=== PATIENT | female | born 1980 | race Caucasian/White ===

== ENCOUNTER 2016-11-05 10:15 | Emergency (ER) | payer MEDICAID ==
[~2016-11-05] VITALS: Ht 152.4 cm; Wt 55.0 kg
[~2016-11-05 10:15] MED LIST: PREN-29 PO
[2016-11-05 10:19] VITALS: Ht 152.4 cm; Wt 55.0 kg
[2016-11-05] MEDS ORDERED: DIPHENHYDRAMINE 50 MG INJ IV ONE (11:00)
[2016-11-05] MEDS ORDERED: METHYLPREDNISOLONE 125 MG INJ IV ONE (11:00)
[2016-11-05] MEDS ORDERED: FAMOTIDINE 20 MG INJ IV ONE (11:00)
[2016-11-05] MEDS ORDERED: SOD CHLORIDE 0.9% 1,000 ML IV ONE (11:00)
[2016-11-05] MEDS ORDERED: BEN25 PO (11:32)
[2016-11-05] MEDS ORDERED: PRED20TA PO (11:32)
--- NOTE | 2016-11-05 11:49 | ERD ---
ER Documentation Chief Complaint Date/Time DATE: 11/05/16 TIME: 11:45 Chief Complaint RASH SINCE SATURDAY HPI This is a 36-year-old female presents to the ER with a rash that started on Saturday. Rash is located all over her body is very itchy. Patient does not recall coming in contact with any new substances, medications, clothing, detergents. This morning patient woke up and her lips were swollen. Patient denies any difficulty in breathing, shortness of breath, wheezing. Patient denies any fevers or chills. ROS 12 point review of systems was done, all negative except per HPI.. Medications Home Meds Active Scripts Diphenhydramine Hcl* (Benadryl*) 25 Mg Cap, 25 MG PO Q6, #30 CAP Prov:GAGE WOODS 11/05/16 Prednisone* (Prednisone*) 20 Mg Tab, 40 MG PO DAILY for 4 Days, TAB Prov:CHLOE WOODSNA C 11/05/16 Allergies Allergies: Coded Allergies: No Known Drug Allergy (Verified Allergy, Unknown, 11/05/16) PMhx/Soc Medical and Surgical Hx: pt denies Medical Hx, pt denies Surgical Hx History of Surgery: No Anesthesia Reaction: No Hx Neurological Disorder: No Hx Respiratory Disorders: No Hx Cardiac Disorders: No Hx Psychiatric Problems: No Hx Miscellaneous Medical Probl: No Hx Alcohol Use: No Hx Substance Use: No Hx Tobacco Use: No Smoking Status: Never smoker Physical Exam Vitals Vital Signs Date Time Temp Pulse Resp B/P Pulse Ox O2 Delivery O2 Flow Rate FiO2 11/05/16 10:19 98.0 79 20 130/78 99 Physical Exam GENERAL: The patient is well developed and appropriate for usual state of health , in no apparent distress. HEENT: Atraumatic. Conjunctivae are pink. Pupils equal, round, and reactive to light. Extraocular muscles are grossly intact. Patient has mild swelling, there is no eye swelling no tongue swelling. There is no uvular deviation or kissing tonsils. CHEST: Clear to auscultation bilaterally. There are no rales, wheezes or rhonchi. HEART: Regular rate and rhythm. No murmurs, clicks, rubs or gallops. NEURO: Alert and oriented. SKIN: Hive like rash all over the body. Results 24 hrs Current Medications Medications (Trade) Dose Ordered Sig/Irving Route PRN Reason Start Time Stop Time Status Last Admin Dose Admin Sodium Chloride (NS) 1,000 ml @ 1,000 mls/hr Q1H ONCE IV 11/05/16 11:00 11/05/16 11:59 11/05/16 11:05 Methylprednisolone Sodium Succinate (Solu-Medrol) 80 mg ONCE ONCE IV 11/05/16 11:00 11/05/16 11:01 DC 11/05/16 11:04 Diphenhydramine HCl (Benadryl) 50 mg ONCE ONCE IV 11/05/16 11:00 11/05/16 11:01 DC 11/05/16 11:04 Famotidine (Pepcid Iv) 20 mg ONCE ONCE IV 11/05/16 11:00 11/05/16 11:01 DC 11/05/16 11:05 Procedures/MDM Differential Diagnosis: dermatitis, allergic urticaria, viral exanthem, insect bite, fungal infectio ,viral exanthem, hand foot mouth disease, , impetigo, cellulitis, abscess, tri reynold syndrome, meningocemia, necrotizing fasciitis, myositis. This is a 36-year-old female presents to the ER with a rash all over her body. Patient does appear to be having an allergic reaction. Patient was given IV Solu-Medrol, Benadryl, famotidine, fluids here in the ER. Patient felt significantly better after treatment. This patient for anaphylactic reaction is low, patient is not hypoxic in any respiratory distress. She is afebrile and well-appearing, I doubt infectious process. She will be sent home with prednisone and Benadryl. Patient is to follow-up with her primary care doctor within 1-2 days return to ER sooner if symptoms worsen. My medical decision making was shared with patient she understands and agrees with plan. Departure Diagnosis: Primary Impression: Allergic reaction Condition: Stable Patient Instructions: First Aid: Allergic Reactions Additional Instructions: Call your primary care doctor TOMORROW for an appointment during the next 1-2 days.See the doctor sooner or return here if your condition worsens before your appointment time. GAGE WOODS Nov 05, 2016 11:49
[2016-11-05 12:20] VITALS: BP 108/64; PULSE 88; RESP 18; TEMP 98.7
[2016-11-06] MEDS ORDERED: BEN50 PO (11:02)
[2016-11-06] MEDS ORDERED: FAMO-96 PO (11:02)
== END 2016-11-05 12:30 | disposition home or self-care (01) ==
LOC: FTE 10:15
DX: R21 Rash and other nonspecific skin eruption (principal)
CPT/HCPCS: J1200; J2930; J7030; Z7610; 96361; 96374; 96375

== ENCOUNTER 2016-11-06 08:22 | Emergency (ER) | payer MEDICAID ==
[~2016-11-06] VITALS: Ht 152.4 cm; Wt 60.0 kg
[~2016-11-06 08:22] MED LIST changes: +BEN25 PO; +PRED20TA PO; -PREN-29 PO
[2016-11-06 08:26] VITALS: Ht 152.4 cm; Wt 60.0 kg
[2016-11-06] MEDS ORDERED: DIPHENHYDRAMINE 50 MG INJ IV ONE (09:00)
[2016-11-06] MEDS ORDERED: DEXAMETHASONE 10 MG/ML 1 ML INJ IV ONE (09:00)
[2016-11-06] MEDS ORDERED: FAMOTIDINE 20 MG INJ IV ONE (09:00)
[2016-11-06] MEDS ORDERED: SOD CHLORIDE 0.9% 1,000 ML IV ONE (09:00)
--- NOTE | 2016-11-06 09:13 | ERD ---
ER Documentation Chief Complaint Date/Time DATE: 11/06/16 TIME: 09:11 Chief Complaint GENERALIZED BODY HIVES,SORE THROAT,ITCHING, POSSIBLE ALLERGIC REACTION HPI 36-year-old female who was seen yesterday for an allergic reaction comes into the ER with generalized hives that are persistent, itchy throat, and swelling to her face and arms. The patient states that it started Saturday which was 3 days ago, she states that she ate beans and turkey and rice, no new foods, medications, lotions, creams, detergents or fragrances. She was treated yesterday and has been taking Benadryl as well as prednisone at home and despite the treatment she states that she still feels very itchy, and the rash has not improved. She denies any trouble swallowing, voice changes. ROS All systems reviewed and are negative except as per history of present illness. Medications Home Meds Active Scripts Diphenhydramine Hcl* (Benadryl*) 50 Mg Cap, 50 MG PO Q6 Y for ITCHING, #30 CAP Prov:CAIT HERZOG PA-C 11/06/16 Famotidine* (Pepcid*) 20 Mg Tablet, 20 MG PO BID for 4 Days, TAB Prov:CAIT HERZOG PA-C 11/06/16 Diphenhydramine Hcl* (Benadryl*) 25 Mg Cap, 25 MG PO Q6, #30 CAP Prov:GAGE WOODS 11/05/16 Prednisone* (Prednisone*) 20 Mg Tab, 40 MG PO DAILY for 4 Days, TAB Prov:GAGE WOODS 11/05/16 Allergies Allergies: Coded Allergies: No Known Drug Allergy (Verified Allergy, Unknown, 11/05/16) PMhx/Soc History of Surgery: No Anesthesia Reaction: No Hx Neurological Disorder: No Hx Respiratory Disorders: No Hx Cardiac Disorders: No Hx Psychiatric Problems: No Hx Miscellaneous Medical Probl: No Hx Alcohol Use: No Hx Substance Use: No Hx Tobacco Use: No Smoking Status: Never smoker Physical Exam Vitals Vital Signs Date Time Temp Pulse Resp B/P Pulse Ox O2 Delivery O2 Flow Rate FiO2 11/06/16 08:26 98.4 88 18 123/57 98 Physical Exam General: Well-developed, well-nourished. The patient appears in no acute distress. HEENT: Head is normocephalic, atraumatic. No scleral icterus. Pupils are equal , round, and reactive. Oral mucous membranes are moist. No pharyngeal erythema. No angioedema. Neck: Supple. Nontender. Lungs: Clear to auscultation. Normal air movement. Heart: Regular rate and rhythm. S1 and S2 are normal. No murmurs, gallops, or rubs. Abdomen: Soft, nontender, nondistended. Bowel sounds are normoactive. Extremities: No clubbing or cyanosis. Normal pulses. Moving extremities x 4. No weakness. Neurologic: Alert and oriented 3. No focal deficits. Skin: Diffuse hives that are blanchable on the face trunk, and extremities. Results 24 hrs Current Medications Medications (Trade) Dose Ordered Sig/Irving Route PRN Reason Start Time Stop Time Status Last Admin Dose Admin Dexamethasone (Decadron) 10 mg ONCE ONCE IV 11/06/16 09:00 11/06/16 09:01 DC 11/06/16 08:58 Diphenhydramine HCl (Benadryl) 50 mg ONCE ONCE IV 11/06/16 09:00 11/06/16 09:01 DC 11/06/16 08:58 Famotidine 20 mg 20 mg ONCE ONCE IV 11/06/16 09:00 11/06/16 09:01 DC 11/06/16 08:58 Sodium Chloride (NS) 1,000 ml @ 1,000 mls/hr Q1H ONCE IV 11/06/16 09:00 11/06/16 09:59 DC 11/06/16 09:02 Procedures/MDM ER course: EMR is reviewed from previous visit. She had an IV line established, she was given Decadron 10 mg IV, Benadryl 50 mg and Pepcid 20 mg IV. She was also given normal saline 1 L. She was observed in the emergency department for approximately 2 hours, she states that she is feeling much better and the rash is reassessed and with much fainter than when she initially presented. MDM: 36-year-old female presents with allergic reaction. She was given Decadron as well as Benadryl and Pepcid and at this time her rash is improving and she states that she is feeling much better at this time. I do not believe the patient requires further monitoring at this time as she has been stable, nor does she require epinephrine. She will be asked to continue the Pepcid, and will change her Benadryl to 50 mg and add Pepcid as well. She has also been advised to avoid all seafood, shellfish, nuts, berries, and avoid hot showers, and hot beverages. The case was reviewed and discussed with Dr. Stein who agrees with the plan of care including labs, treatment, and advanced imaging as appropriate. Departure Diagnosis: Primary Impression: Allergic reaction Condition: CAIT Cancino PA-C Nov 06, 2016 09:13
[2016-11-06] MEDS ORDERED: FAMO-18 PO (11:02)
[2016-11-06] MEDS ORDERED: BEN50 PO (11:02)
== END 2016-11-06 11:40 | disposition home or self-care (01) ==
LOC: FTE 08:22
DX: L50.9 Urticaria, unspecified (principal); T78.1XXA Other adverse food reactions, not elsewhere classified, initial encounter
CPT/HCPCS: 96374; 96375; J1100; J1200; J7030; Z7502; Z7610

== ENCOUNTER 2018-10-19 11:53 | Emergency (ER) | payer MEDICAID ==
[~2018-10-19] VITALS: Ht 165.1 cm; Wt 51.1 kg
[~2018-10-19 11:53] MED LIST changes: +BEN50 PO; +FAMO-96 PO
[2018-10-19 11:57] VITALS: RESP 20; Ht 165.1 cm; Wt 51.1 kg
[2018-10-19] MEDS ORDERED: LIDOCAINE 1% (MPF) 5 ML VIAL INJ ONE (13:30)
[2018-10-19] MEDS ORDERED: IBUPROFEN 200 MG TAB PO ONE (13:30)
[2018-10-19] MEDS ORDERED: CEFTRIAXONE 1 GM INJ IM ONE (13:30)
[2018-10-19] MEDS ORDERED: CEPH-443 PO (13:45)
[2018-10-19] MEDS ORDERED: IBUP-1561 PO (13:45)
--- NOTE | 2018-10-19 13:50 | ERD ---
ER Documentation Chief Complaint Chief Complaint Complains of back pain x 3 days HPI 38-year-old female presents with complaint of right flank pain, dysuria, urgency for the past 3 days. Denies any treatments. Denies any vaginal discharge, Hematuria, fevers, nausea, vomiting, diarrhea. Denies abdominal pain. Denies allergies. ROS All systems reviewed and are negative except as per history of present illness. Medications Home Meds Active Scripts Ibuprofen* (Motrin*) 400 Mg Tab, 400 MG PO Q6 for pain, #30 TAB Prov:PARAM CENTENO 10/19/18 Cephalexin* (Keflex*) 500 Mg Capsule, 500 MG PO BID for 14 Days, CAP Prov:PARAM CENTENO 10/19/18 Diphenhydramine Hcl* (Benadryl*) 50 Mg Cap, 50 MG PO Q6 PRN for ITCHING, #30 CAP Prov:CAIT HERZOG PA-C 11/06/16 Famotidine* (Pepcid*) 20 Mg Tablet, 20 MG PO BID for 4 Days, TAB Prov:CAIT HERZOG PA-C 11/06/16 Diphenhydramine Hcl* (Benadryl*) 25 Mg Cap, 25 MG PO Q6, #30 CAP Prov:GAGE WOODS 11/05/16 Prednisone* (Prednisone*) 20 Mg Tab, 40 MG PO DAILY for 4 Days, TAB Prov:GAGE WOODS 11/05/16 Allergies Allergies: Coded Allergies: No Known Drug Allergy (Verified Allergy, Unknown, 11/05/16) PMhx/Soc Medical and Surgical Hx: pt denies Medical Hx, pt denies Surgical Hx History of Surgery: No Anesthesia Reaction: No Hx Neurological Disorder: No Hx Respiratory Disorders: No Hx Cardiac Disorders: No Hx Psychiatric Problems: No Hx Miscellaneous Medical Probl: No Hx Alcohol Use: No Hx Substance Use: No Hx Tobacco Use: No Smoking Status: Never smoker FmHx Family History: No diabetes, No coronary disease, No other Physical Exam Vitals Vital Signs Date Temp Pulse Resp B/P (MAP) Pulse Ox O2 O2 Flow FiO2 Time Delivery Rate 10/19/18 99.4 81 20 110/61 99 11:57 (77) Physical Exam Const: No acute distress Head: Atraumatic Eyes: Normal Conjunctiva ENT: Normal External Ears, Nose and Mouth. Neck: Full range of motion. No meningismus. Resp: Clear to auscultation bilaterally Cardio: Regular rate and rhythm, no murmurs Abd: Mild suprapubic tenderness without guarding. Otherwise soft, non tender, non distended. Normal bowel sounds. Negative McBurney's. Skin: No petechiae or rashes Back: Bilateral CVA tenderness. Ext: No cyanosis, or edema Neur: Awake and alert Psych: Normal Mood and Affect Results 24 hrs Laboratory Tests Test 10/19/18 13:45 10/19/18 13:51 Urine Color STRAW Urine Clarity CLEAR Urine pH 7.0 Urine Specific [place] 1.005 Urine Ketones NEGATIVE mg/dL Urine Nitrite NEGATIVE mg/dL Urine Bilirubin NEGATIVE mg/dL Urine Urobilinogen NEGATIVE mg/dL Urine Leukocyte Esterase TRACE Sonya/ul Urine Microscopic RBC 1 /HPF Urine Microscopic WBC 9 /HPF Urine Hemoglobin NEGATIVE mg/dL Urine Glucose NEGATIVE mg/dL Urine Total Protein NEGATIVE mg/dl POC Beta HCG, Qualitative NEGATIVE Current Medications Medications Dose Sig/Irving Start Time Status Last (Trade) Ordered Route PRN Stop Time Admin Dose Reason Admin Ceftriaxone 1 gm ONCE ONCE 10/19/18 DC 10/19/18 Sodium IM 13:30 13:48 (Rocephin) 10/19/18 13:31 Lidocaine 5 ml ONCE ONCE 10/19/18 DC 10/19/18 (Xylocaine INJ 13:30 13:48 1% (Mpf)) 10/19/18 13:31 Ibuprofen 400 mg ONCE ONCE 10/19/18 DC 10/19/18 (Motrin) PO 13:30 13:48 10/19/18 13:31 Procedures/MDM UA showed leukocytes. Wet mount was negative. Patient's presentation is consistent with pyelonephritis. Patient was given IM ceftriaxone in the ER and discharged with Keflex. I have low suspicion for appendicitis, renal colic, lumbar fracture, PID, AAA, or any other emergent condition. Patient discharged with strict ER precautions. Patient advised to follow up with PMD. All questions answered at discharge. Departure Diagnosis: Primary Impression: Pyelonephritis Condition: Stable Patient Instructions: Pyelonephritis, Female (Adult) Referrals: COMMUNITY CLINICS YOU HAVE RECEIVED A MEDICAL SCREENING EXAM AND THE RESULTS INDICATE THAT YOU DO NOT HAVE A CONDITION THAT REQUIRES URGENT TREATMENT IN THE EMERGENCY DEPARTMENT. FURTHER EVALUATION AND TREATMENT OF YOUR CONDITION CAN WAIT UNTIL YOU ARE SEEN IN YOUR DOCTORS OFFICE WITHIN THE NEXT 1-2 DAYS. IT IS YOUR RESPONSIBILITY TO MAKE AN APPOINTMENT FOR FOLOW-UP CARE. IF YOU HAVE A PRIMARY DOCTOR --you should call your primary doctor and schedule an appointment IF YOU DO NOT HAVE A PRIMARY DOCTOR YOU CAN CALL OUR PHYSICIAN REFERRAL HOTLINE AT IF YOU CAN NOT AFFORD TO SEE A PHYSICIAN YOU CAN CHOSE FROM THE FOLLOWING [facility] CL[facility]ICS [facility] [address] [facility] [address] [facility] [address] [facility] [facility] [address] [facility] [address] [facility] [address] [facility]. [facility]. [address] Additional Instructions: FOLLOW UP WITH YOUR PRIMARY CARE PHYSICIAN TOMORROW.Return to this facility if you are not improving as expected. PARAM CENTENO Oct 19, 2018 13:50
[2018-10-19 14:45] VITALS: BP 107/61; PULSE 73
== END 2018-10-19 14:46 | disposition home or self-care (01) ==
LOC: FTE 11:53
DX: N12 Tubulo-interstitial nephritis, not specified as acute or chronic (principal)
CPT/HCPCS: 81001; 81025; 87086; 87210; J0696; Z7610; 96372

== ENCOUNTER 2018-12-15 16:05 | Emergency (ER) | payer MEDICAID ==
[~2018-12-15] VITALS: Ht 149.9 cm; Wt 51.1 kg
[~2018-12-15 16:05] MED LIST changes: +CEPH-443 PO; +IBUP-1561 PO
[2018-12-15 16:12] VITALS: Ht 149.9 cm; Wt 51.1 kg
--- NOTE | 2018-12-15 18:49 | ERD ---
ER Documentation Chief Complaint Chief Complaint painful, frequent urination x2 days HPI 38-year-old female presents with sharp, painful, frequent urination x2 days. States she has a history of frequent urinary tract infections this feels very similar to one. She denies any blood in her urine, nausea, or vomiting. She reports abdominal pain localized to the epigastric region that does not radiate anywhere. She denies trying anything to relieve her symptoms. She denies any other medical history. ROS All systems reviewed and are negative except as per history of present illness. Medications Home Meds Active Scripts Cephalexin* (Keflex*) 500 Mg Capsule, 500 MG PO BID for 7 Days, #14 CAP Prov:FAIZAN SUAZO PA-C 12/15/18 Ibuprofen* (Motrin*) 400 Mg Tab, 400 MG PO Q6 for pain, #30 TAB Prov:PARAM CENTENO 10/19/18 Cephalexin* (Keflex*) 500 Mg Capsule, 500 MG PO BID for 14 Days, CAP Prov:PARAM CENTENO 10/19/18 Diphenhydramine Hcl* (Benadryl*) 50 Mg Cap, 50 MG PO Q6 PRN for ITCHING, #30 CAP Prov:CAIT HERZOG PA-C 11/06/16 Famotidine* (Pepcid*) 20 Mg Tablet, 20 MG PO BID for 4 Days, TAB Prov:CAIT HERZOG PA-C 11/06/16 Diphenhydramine Hcl* (Benadryl*) 25 Mg Cap, 25 MG PO Q6, #30 CAP Prov:GAGE WOODS 11/05/16 Prednisone* (Prednisone*) 20 Mg Tab, 40 MG PO DAILY for 4 Days, TAB Prov:GAGE WOODS 11/05/16 Allergies Allergies: Coded Allergies: No Known Drug Allergy (Verified Allergy, Unknown, 11/05/16) PMhx/Soc History of Surgery: No Anesthesia Reaction: No Hx Neurological Disorder: No Hx Respiratory Disorders: No Hx Cardiac Disorders: No Hx Psychiatric Problems: No Hx Miscellaneous Medical Probl: Yes (hx UTIs) Hx Alcohol Use: No Hx Substance Use: No Hx Tobacco Use: No Smoking Status: Never smoker Physical Exam Vitals Vital Signs Date Temp Pulse Resp B/P (MAP) Pulse Ox O2 O2 Flow FiO2 Time Delivery Rate 12/15/18 98.2 64 18 120/71 99 16:12 (87) Physical Exam Const: No acute distress Neck: Full range of motion. No meningismus. Resp: Clear to auscultation bilaterally Cardio: Regular rate and rhythm, no murmurs Abd: Soft,tender to epigastric region. Normal bowel sounds Neur: Awake and alert Psych: Normal Mood and Affect Results 24 hrs Laboratory Tests Test 12/15/18 19:04 Bedside Urine pH (LAB) 6.0 Bedside Urine Protein (LAB) Trace Bedside Urine Glucose (UA) Negative Bedside Urine Ketones (LAB) Negative Bedside Urine Blood 2+ Bedside Urine Nitrite (LAB) Negative Bedside Urine Leukocyte Esterase (L 2+ Procedures/MDM ED COURSE: The patient was stable throughout ED course. I kept the patient and/or family informed of laboratory and diagnostic imaging results throughout the ED course. PROCEDURES: Urine dip MEDICAL DECISION MAKING: Patient is a 38-year-old female with a history of frequent UTIs. Urine dip along with pt's history showed evidence of a urinary tract infection.. I have low suspicion for appendicitis, renal colic, lumbar fracture, PID, AAA, or any other emergent condition. Patient discharged with strict ER precautions. Patient advised to follow up with PCP. All questions answered at discharge. Vital signs were reviewed. Patient is afebrile. Patient was not hypoxic. Patient was hemodynamically stable. PRESCRIPTION: DISCHARGE: At this time, patient is stable for discharge and outpatient management. I have instructed the patient to follow-up with his/her primary care physician in 1-2 days. I have discussed with the patient the possibility of needing to see a specialist for further workup and imaging studies if symptoms persist. I have instructed the patient to promptly return to the ER for any new or worsening symptoms including increased pain, fever, nausea, vomiting, weakness or LOC. The patient and/or family expressed understanding of and agreement with this plan. All questions were answered. Home care instructions were provided. Disclaimer: Inadvertent spelling and grammatical errors are likely due to EHR/dictation software use and do not reflect on the overall quality of patient care. Also, please note that the electronic time recorded on this note does not necessarily reflect the actual time of the patient encounter. Departure Diagnosis: Primary Impression: Urinary tract bacterial infections Condition: Stable Patient Instructions: Understanding Urinary Tract Infections (UTIs) Referrals: COMMUNITY CLINICS YOU HAVE RECEIVED A MEDICAL SCREENING EXAM AND THE RESULTS INDICATE THAT YOU DO NOT HAVE A CONDITION THAT REQUIRES URGENT TREATMENT IN THE EMERGENCY DEPARTMENT. FURTHER EVALUATION AND TREATMENT OF YOUR CONDITION CAN WAIT UNTIL YOU ARE SEEN IN YOUR DOCTORS OFFICE WITHIN THE NEXT 1-2 DAYS. IT IS YOUR RESPONSIBILITY TO MAKE AN APPOINTMENT FOR FOLOW-UP CARE. IF YOU HAVE A PRIMARY DOCTOR --you should call your primary doctor and schedule an appointment IF YOU DO NOT HAVE A PRIMARY DOCTOR YOU CAN CALL OUR PHYSICIAN REFERRAL HOTLINE AT IF YOU CAN NOT AFFORD TO SEE A PHYSICIAN YOU CAN CHOSE FROM THE FOLLOWING [facility] CLINICS [facility] [address] [facility] [address] [facility] [facility] [address] [facility] [address] [facility] [facility] [address] [facility] [facility] [address] [facility]. [facility] YOU HAVE RECEIVED A MEDICAL SCREENING EXAM AND THE RESULTS INDICATE THAT YOU DO NOT HAVE A CONDITION THAT REQUIRES URGENT TREATMENT IN THE EMERGENCY DEPARTMENT. FURTHER EVALUATION AND TREATMENT OF YOUR CONDITION CAN WAIT UNTIL YOU ARE SEEN IN YOUR DOCTORS OFFICE WITHIN THE NEXT 1-2 DAYS. IT IS YOUR RESPONSIBILITY TO MAKE AN APPOINTMENT FOR FOLOW-UP CARE. IF YOU HAVE A PRIMARY DOCTOR --you should call your primary doctor and schedule and appointment IF YOU DO NOT HAVE A PRIMARY DOCTOR YOU CAN CALL OUR PHYSICIAN REFERRAL HOTLINE AT . IF YOU CAN NOT AFFORD TO SEE A PHYSICIAN YOU CAN CHOSE FROM THE FOLLOWING [facility]: [facility] [address] [place] [address] [facility] [address] [place] [address] [facility] [address] [place] [address] Additional Instructions: Call your primary care doctor TOMORROW for an appointment during the next 2-3 days.See the doctor sooner or return here if your condition worsens before your appointment time. FAIZAN SUAZO PA-C December 15, 2018 18:48
[2018-12-15] MEDS ORDERED: CEPH-443 PO (19:12)
[2018-12-15 19:22] VITALS: BP 119/67; PULSE 66; RESP 18
== END 2018-12-15 19:25 | disposition home or self-care (01) ==
LOC: FTE 16:05
DX: N39.0 Urinary tract infection, site not specified (principal)
CPT/HCPCS: 81003; 99283